=== PATIENT | female | born 1945 | race Caucasian/White ===

== ENCOUNTER 2024-01-03 11:17 | Observation (INO) | payer MEDICARE, BC ==
[~2024-01-03] VITALS: Ht 162.6 cm; Wt 51.0 kg
[2024-01-03] MEDS ORDERED: PARO10TA3 PO (11:36)
[2024-01-03] MEDS ORDERED: GNP1000T11 PO (11:39)
[2024-01-03] MEDS ORDERED: SIMV20TA22 PO (11:39)
[2024-01-03] MEDS ORDERED: OMEG-23 PO (11:39)
[2024-01-03] MEDS: MORPHINE 4 MG/ML 1ML VIAL IV ONE (13:33)
[2024-01-03] MEDS: BOOSTRIX VACCINE (TETANUS/DIPHTH/ACEL. PERTUSSIS) 0.5ML SYR IM.IMMUN ONE (13:35)
[2024-01-03 14:11] LABS: BASO % 0.2 % (0.0-1.0); EOS % 0.2 % (0.0-3.0); HEMATOCRIT 38.2 % (36.0-47.0); LYMPH # 0.7 10^3/uL (1.5-5.0); LYMPH % 5.5 % (24.0-44.0); MEAN CORPUSCULAR VOLUME 91.2 fl (80.0-96.0); MONO # 0.6 10^3/uL (0.0-0.8); MONO % 5.3 % (2.0-8.0); NEUTROPHILS # 10.6 10^3/uL (1.5-8.5); NEUTROPHILS % 88.3 % (36.0-66.0); PLATELET COUNT, AUTOMATED 210 10^3/uL (150-450); RED BLOOD COUNT 4.19 10^6/uL (4.00-5.40)
[2024-01-03] MEDS ORDERED: ISOVUE-370 76% 100ML VIAL As Ordered ONE (14:19)
[2024-01-03] MEDS: NS 500 ML IV ONE (14:19)
[2024-01-03 14:31] LABS: BLOOD UREA NITROGEN 18 MG/DL (9-23); CALCIUM LEVEL 9.2 MG/DL (8.3-10.6); CARBON DIOXIDE LEVEL 25 MMOL/L (20-31); CHLORIDE LEVEL 106 MMOL/L (98-107); CREATININE FOR GFR 0.76 MG/DL (0.55-1.30); GLOMERULAR FILTRATION RATE > 60.0 (>39); GLUCOSE, FASTING 91 MG/DL (74-106); POTASSIUM SERUM 3.8 MMOL/L (3.5-5.1); SODIUM LEVEL 138 MMOL/L (136-145)
[2024-01-03] MEDS ORDERED: CALC250T PO (18:22)
[2024-01-03] MEDS ORDERED: CO Q200C10 PO (18:22)
[2024-01-03] MEDS ORDERED: MELA3TAB30 PO (18:22)
[2024-01-03] MEDS ORDERED: CAL-TAB4 PO (18:22)
[2024-01-03] MEDS ORDERED: IBAN150T6 PO (18:22)
[2024-01-03] MEDS ORDERED: HOME MED LIST COMPLETE! XX SCH (18:25)
[2024-01-03] MEDS ORDERED: ONDANSETRON 4MG 2ML VIAL IV PRN (18:50)
[2024-01-03] MEDS: IBUPROFEN 400MG TAB PO SCH (19:42)
[2024-01-03] MEDS: traMADol 50 MG TAB PO SCH (19:42)
[2024-01-03 20:30] VITALS: BP 112/56; TEMP 97.7; O2SAT 96
[2024-01-03] MEDS: ENOXAPARIN 40MG/0.4ML SYRINGE (J1650 PER 10MG) SC SCH (20:53)
[2024-01-03] MEDS: NS 1,000 ML IV SCH (20:57)
[2024-01-03] MEDS: MORPHINE 4 MG/ML 1ML VIAL IV PRN (22:04)
[2024-01-03 23:30] VITALS: BP 140/65; TEMP 97.4; O2SAT 95
[2024-01-04 04:00] VITALS: BP 126/61; TEMP 97.8; O2SAT 97
[2024-01-04 07:50] LABS: HEMATOCRIT 36.2 % (36.0-47.0); MEAN CORPUSCULAR HEMOGLOBIN 30.7 pg (27.0-33.0); MEAN CORPUSCULAR HGB CONC 33.1 g/dl (32.0-36.5); MEAN CORPUSCULAR VOLUME 92.6 fl (80.0-96.0); PLATELET COUNT, AUTOMATED 180 10^3/uL (150-450); RED BLOOD COUNT 3.91 10^6/uL (4.00-5.40); WHITE BLOOD COUNT 5.4 10^3/uL (4.0-10.0)
[2024-01-04 07:56] VITALS: BP 135/62; TEMP 97.3; O2SAT 96
[2024-01-04 08:14] LABS: ALBUMIN 3.2 G/DL (3.2-5.2); ALKALINE PHOSPHATASE 45 U/L (46-116); ALT/SGPT 22 U/L (7.0-40); AST/SGOT 16 U/L (<34); BILIRUBIN,TOTAL 0.7 MG/DL (0.3-1.2); BLOOD UREA NITROGEN 12 MG/DL (9-23); CALCIUM LEVEL 8.2 MG/DL (8.3-10.6); CARBON DIOXIDE LEVEL 26 MMOL/L (20-31); CHLORIDE LEVEL 109 MMOL/L (98-107); CREATININE FOR GFR 0.72 MG/DL (0.55-1.30); GLOMERULAR FILTRATION RATE > 60.0 (>39); GLUCOSE, FASTING 90 MG/DL (74-106); POTASSIUM SERUM 4.1 MMOL/L (3.5-5.1); SODIUM LEVEL 141 MMOL/L (136-145); TOTAL PROTEIN 5.5 G/DL (5.7-8.2)
[2024-01-04] MEDS: PARoxetine 10MG TABLET PO SCH (10:16)
[2024-01-04] MEDS: ACETAMINOPHEN TAB 650MG DOSE (2X325MG) PO PRN (10:18)
[2024-01-04 12:17] VITALS: BP 129/62; TEMP 99; O2SAT 96
[2024-01-04] MEDS: traMADol 50 MG TAB PO PRN (14:25)
[2024-01-04 16:06] VITALS: BP 127/59; TEMP 97.2; O2SAT 97
[2024-01-04] MEDS: IBUPROFEN 400MG TAB PO PRN (18:52)
[2024-01-04 19:37] VITALS: BP 135/61; TEMP 98; O2SAT 99
[2024-01-04] MEDS: SIMVASTATIN 20 MG TAB PO SCH (23:06)
[2024-01-05] VITALS (7 sets, daily range): BP systolic 119–150; BP diastolic 22–69; TEMP 97–97.9; O2SAT 55–99
[2024-01-06 00:05] VITALS: BP 145/69; TEMP 97.9; O2SAT 97
[2024-01-06 04:00] VITALS: BP 150/67; TEMP 97.7; O2SAT 98
[2024-01-06 06:35] LABS: HEMATOCRIT 37.1 % (36.0-47.0); HEMOGLOBIN 12.3 g/dl (12.0-15.5); MEAN CORPUSCULAR HEMOGLOBIN 30.8 pg (27.0-33.0); MEAN CORPUSCULAR HGB CONC 33.2 g/dl (32.0-36.5); MEAN CORPUSCULAR VOLUME 92.8 fl (80.0-96.0); PLATELET COUNT, AUTOMATED 196 10^3/uL (150-450); WHITE BLOOD COUNT 5.7 10^3/uL (4.0-10.0)
[2024-01-06 07:58] VITALS: BP 135/63; TEMP 98.2; O2SAT 98
[2024-01-06] MEDS: CYCLOBENZAPRINE 5MG TABLET PO PRN (09:58)
[2024-01-06] MEDS: PERCOCET 5MG/325MG TAB PO PRN (11:00)
[2024-01-06 12:53] VITALS: BP 129/65; TEMP 98.2; O2SAT 96
[2024-01-06] MEDS: MORPHINE 4 MG/ML 1ML VIAL IV PRN (14:55)
[2024-01-06 20:00] VITALS: BP 129/64; TEMP 98.4; O2SAT 95
[2024-01-07] VITALS: BP 124/64; TEMP 97.9; O2SAT 97
[2024-01-07 04:47] VITALS: BP 122/72; TEMP 98.2; O2SAT 96
[2024-01-07 08:00] VITALS: BP 134/64; TEMP 97.8; O2SAT 96
[2024-01-07 12:00] VITALS: BP 133/65; TEMP 97; O2SAT 97
[2024-01-07] MEDS: CYCLOBENZAPRINE 5MG TABLET PO SCH (13:20)
[2024-01-07 16:00] VITALS: BP 122/60; TEMP 97.7; O2SAT 97
[2024-01-07] MEDS: SENNA 8.6 MG TAB (SENOKOT) PO SCH (21:12)
[2024-01-07 22:00] VITALS: BP 135/74; TEMP 97.3; O2SAT 97
[2024-01-08 05:23] VITALS: TEMP 97; O2SAT 97
[2024-01-08 05:24] VITALS: BP 139/67
[2024-01-08 08:30] VITALS: BP 114/62; TEMP 96.9; O2SAT 96
[2024-01-08 12:24] VITALS: BP 112/59; TEMP 96.8
[2024-01-08 16:29] VITALS: BP 116/63; TEMP 96.9
[2024-01-08 20:00] VITALS: BP 106/86; TEMP 98.2; O2SAT 97
[2024-01-09] VITALS: BP 121/69; TEMP 97.7; O2SAT 96
[2024-01-09 04:00] VITALS: BP 122/63; TEMP 97.5; O2SAT 96
[2024-01-09 06:39] LABS: HEMATOCRIT 38.9 % (36.0-47.0); MEAN CORPUSCULAR HGB CONC 33.4 g/dl (32.0-36.5); MEAN CORPUSCULAR VOLUME 92.6 fl (80.0-96.0); PLATELET COUNT, AUTOMATED 211 10^3/uL (150-450); WHITE BLOOD COUNT 4.5 10^3/uL (4.0-10.0)
[2024-01-09 08:00] VITALS: BP 124/2; TEMP 97.7; O2SAT 96
[2024-01-09 12:00] VITALS: BP 116/56; TEMP 98.1
[2024-01-09] MEDS ORDERED: SENO8.6T5 PO (14:45)
[2024-01-09] MEDS ORDERED: PERCOCET PO (14:45)
== END 2024-01-09 18:45 | disposition home or self-care (01) ==
LOC: EDBD 11:17 → M ED 11:17 → M ED INP 11:18 → M MS4PR 23:20 → M MS5PR 01-05 17:30
PROVIDERS: ADMIT Preventive Medicine Undersea and Hyperbaric Medicine; ATTEND Preventive Medicine Undersea and Hyperbaric Medicine
DX: S32.414A Nondisplaced fracture of anterior wall of right acetabulum, initial encounter for closed fracture (principal); S32.511A Fracture of superior rim of right pubis, initial encounter for closed fracture; V11.0XXA Pedal cycle driver injured in collision with other pedal cycle in nontraffic accident, initial encounter; Y92.410 Unspecified street and highway as the place of occurrence of the external cause; Y93.55 Activity, bike riding; E78.00 Pure hypercholesterolemia, unspecified; F41.9 Anxiety disorder, unspecified; F32.A Depression, unspecified; Z79.899 Other long term (current) drug therapy; Z23 Encounter for immunization
CPT/HCPCS: 36415; 70450; 71045; 71260; 72125; 72192; 73080; 73502; 73700; 74177; 80047; 80048; 80053; 83735; 85025; 85027; 90471; 90715; 93041; 94760; 96361; 96372; 96374; 96375; 96376; 97110; 97116; 97161; 97165; 97530; 97535; 99285; G0378; J1650; Q9967

== ENCOUNTER → 2024-01-20 | Outpatient (CLI) | payer MEDICARE, BC ==
[~2024-01-20] MED LIST: CAL-TAB4 PO; CALC250T PO; CO Q200C10 PO; GNP1000T11 PO; IBAN150T6 PO; MELA3TAB30 PO; OMEG-23 PO; PARO10TA3 PO; PERCOCET PO; SENO8.6T5 PO; SIMV20TA22 PO
== END ==
LOC: M SOG 07:51
PROVIDERS: ATTEND Orthopaedic Surgery
DX: R10.2 Pelvic and perineal pain (principal); S32.591D Other specified fracture of right pubis, subsequent encounter for fracture with routine healing